=== PATIENT | male | born 1975 | race Two or more races ===

== ENCOUNTER 2025-06-08 12:33 | Outpatient (OUT) | payer OTHER, SELFPAY ==
--- OUTSIDE RECORDS SUMMARY | 2025-06-07 11:00 | XMS_ITS ---
Author Organization [facility] in [place] Address [address] [place] [address] Care Team Providers Care Md Allergy Immunology Name Role Phone Indio Bernardo Primary Care Provider Allergies Allergen (clinical drug ingredient) Drug/Non Drug Allergy documented on EMR Reaction Allergy Type Onset Date Status AloxihivesDrug AllergyActiveOmnicefhivesDrug AllergyActivedoxycyclineDoxycycline rashDrug AllergyActive REASON FOR VISIT new patient Medications Medication SIG (Take, Route, Frequency, Duration) Notes Start Date End Date Status Lantus 100 UNIT/ML 40mg Subcutaneous daily ActivemetFORMIN HCl 1000 MG1 tablet with a meal Orally twice a dayActive Jardiance 25 MG1 tablet Orally Once a dayActiveVascepa 1 GM2 capsules with meals Orally Twice a dayActiveRosuvastatin Calcium 10 MG1 tablet Orally Once a day ActiveGlimepiride 4 MG1 tablet with breakfast or the first main meal of the day Orally twice a dayActiveMetoprolol Tartrate 25 MG1 tablet with food Orally Twice a dayActiveLisinopril 10 MG1 tablet Orally Once a dayActive Social History Tobacco Use: Social History Observation Description Date Details (start date - stop date) Never Smoker NA - NA Tobacco Control (Standard) Question Answer Notes Tobacco use: Nonsmoker AUDIT-C (Standard) Question Answer Notes Did you have a drink containing alcohol in the p ast year? No Lwhpqc0HpzsrllqgqqnvyTqzcjved Problems Problem Type SNOMED Code ICD Code Onset Dates Problem Status W/U Status Risk Notes Problem Well adult (595946067) Well adult (Z00.00 ) Activeconfirmed Vital Signs Weight 183 lbs 06/07/2025 Height 68 in 06/07/2025 Blood pressure systolic 124 mm Hg 06/07/20 25 Blood pressure diastolic 74 mm Hg 025 BMI 27.82 kg/m2 06/07/2025 Encounters Encounter Location Date Provider Diagnosis [facility] [address] [place] [address] 06/07/2025 Indio Bernardo Well adult Z00.0 0 Assessments Encounter Date Diagnosis (ICD Code) Assessment Notes Treatment Notes Treatment Clinical Notes Section Notes 06/07/2025 Well adult (ICD-10 - Z00.00) Plan Of Treatment Pending Test Test Name Order Date HEMOGLOBIN A1C (GLYCO) 06/07/2025 LIPID PANEL (CHOL/TRIG/HDL/LDL) 06/07/20 25 STOOL OCCULT BLOOD 06/07/2025 THYROID PANEL (T4/TSH/FREE T3) PSA, SCREENING 06/07/2025 CMP (COMP MET NAGEL) w/eGFR CKD-EPI 2024 CBC WITH DIFF 06/07/2025 Progress Notes * Tangela GERMANOB:1975 (49 yo M)Acc No.[id number]:06/07/2025 UNLOCKED PROGRESS NOTE New Patient Patient: Saúl SANTOS :?Erasmo Bernardo ([facility]), MDDOB:1975???Age: 49 Y???Sex:MaleDate:06/07/2025Phone:[phone]:[address] [place], [place] [id number] In:03:38 PM ESTCheck Out:05:15 PM EST Subjective: * Chief Complaints: * 1 . New patient. * HPI: ???Depression Screening:?PHQ-2 (2015 Edition)?Total Score?0 ?Little interest or pleasure in doing things? Not at all ?Feeling down, depressed, or hopeless??Not at all ?DM- hgba1c last was an 8 - See Sabbaugh Hyper chol - on meds HTN - stabel here. * ROS: ???EENT:?hearing changes?denies.?visual changes?denies. non-healing mouth sores?denies.?swollen glands or neck lumps?denies.?hoarseness?denies.?sore throat?denies.?difficulty swallowing?denies.?nose bleeds?denies.?nasal congestion?denies.?ear ache?denies.?ear discharge denies.?ringing in ears?denies.?light sensitivity?denies.?eye pain?denies.?blurring?denies.?eye irritation?denies.?double vision?denies. vision loss?denies.?General/Constitutional:?Sweats:?Denies.?Fatigue?denies.?Sleep proble ms?denies.?Anorexia?denies.?Malaise?denies.?Weight loss?denies. Fatigue or Weakness?denies.?Fever or Chills?denies.?Cardiovascular:?Shortness of Breath w/lying flat?denies.?Lightheadedne ss/dizziness?denies.?Chest tightness/ heavy pressure?denies.?Swelling of legs, a nkles, or feet?denies.?Waking up with shortness of breath?denies.?Chest pain&#16 0;denies.?Palpitations?denies.?Weight gain?denies.?Respiratory:?Chronic or frequent cough?denies.?Coughing up blood&#1 60;denies.?Difficulty breathing?denies.?Productive cough?denies.?Snoring&#1 60;denies.?Shortness of breath that awakens from sleep (PND)?denies.?Chest pain? denies.?Sputum production?denies.?Wheezing?denies.?Musculoskeletal:?Joint pain?denies.?Joint Fluid?denies.?Backpain?denies.?Knee pain?denies.?Neck pain?denies.?Joint Stiffness?denies.?Muscle cramps?denies.?Weakness of muscles?denies.?Arthritis?denies.?Muscle aches?denies.?Pain in shoulder(s)?denies.?Swollen joints?denies.? * Medical History: D iabetic type 2. * Surgical History: b oth knee orthoscopy and acl replacement , right rotator cuff repair . * Family History: F ather: , prostate cancer, diagnosed with Cancer, Diabetes, Hypertension. M other: alive, diagnosed with Diabetes, Hypertension. B rother(s): alive. S ister(s): alive. 1 brother(s) . 2 son(s) , 1 daughter(s) . . * Social History: ???Tobacco Use:?Tobacco Control (Standard)?Tobacco use:?Nonsmoker ???Drug/Alcohol:?AUDIT-C (Standard)?Did you have a drink containing alcohol in the past year??No ?Points?0 ?Interpretation?Negative * Medications: T aking Glimepiride 4 MG Tablet 1 tablet with breakfast or the first main meal of the day Orally twice a day , Taking Jardiance(Empagliflozin) 25 MG Tablet 1 tablet Orally Once a day , Taking Lantus(Insulin Glargine) 100 UNIT/ML Solution 40mg Subcutaneous daily , Taking Lisinopril 10 MG Tablet 1 tablet Orally Once a day , Taking metFORMIN HCl 1000 MG Tablet 1 tablet with a meal Orally twice a day , Taking Metoprolol Tartrate 25 MG Tablet 1 tablet with food Orally Twice a day , Taking Rosuvastatin Calcium 10 MG Tablet 1 tablet Orally Once a day , Taking Vascepa(Icosapent Ethyl) 1 GM Capsule 2 capsules with meals Orally Twice a day , Medication List reviewed and reconciled with the patient * Allergies: A loxi: hives, Doxycycline: rash, Omnicef: hives. Objective: * Vitals: W t:183lbs, Ht: 68 in, BP:124/74mm Hg, BMI:27.82Index, Ht-cm: 172.72 cm, Wt-k.01 kg. * Examination: ???Physical Exam: ?GENERAL:?well developed, well nourished, in no acute distress.?HEAD:?normocephalic/atraumatic.?EYES:?pupils equal, round and reactive to light, conjunctivae and sclerae normal.?EARS:?no deformity or lesion of external ear, canals and TM appear normal bilaterally, TM's intact, not inflamed with normal light reflex, hearing grossly normal to conversational speech.?NOSE:?no deformity, discharge, inflammation, or lesions. ?MOUTH:?mucous membranes moist, normal oropharynx and posterior pharynx without lesions or exudates, tongue normal, dentition normal.?NECK:?neck supple, no masses or palpable cervical nodes, trachea midline, thyroid without nodules, masses, tenderness, or enlargement.?CHEST:?no chest wall deformity, no chest wall tenderness. ?LUNGS:?normal respiratory effort and clear to auscultation, no wheezes, rales, or rhonchi, good air exchange.?CARDIO:?regular rate and rhythm, normal S1 and S2, nor murmur, rub, or gallop.?PULSES:?normal capillary refill.?ABDOMEN:?soft, non-distended, non-tender, no masses.?MUSCULOSKELETAL:?no deformity or scoliosis noted, normal range of motion, joints normal, no erythema, edema, effusion, or ecchymosis.?EXTREMITY:?no clubbing, cyanosis, edema, or deformity withnormal ROM in both upper and lower bilateral extremities.?NEUROLOGIC:?grossly normal.?SKIN:?no rashes, ulcerations, or suspicious lesions.?LYMPH NODES:?no cervical adenopathy, nodes normal.?MENTAL STATUS:?alert and oriented x3, normal mood and affect.? Assessment: * Assessment: 1.?Well adult - Z00.00 (Primary)??? Plan: * Treatment: ?LAB: HEMOGLOBIN A1C (GLYCO) ?LAB: LIPID PANEL (CHOL/TRIG/HDL/LDL) ?LAB: STOOL OCCULT BLOOD ?LAB: THYROID PANEL (T4/TSH/FREE T3) ?LAB: PSA, SCREENING ?LAB: CMP (COMP MET NAGEL) w/eGFR CKD-EPI ?LAB: CBC WITH DIFF * Preventive Medicine: ??Screenings/Counseling:?BMI ACTION PLAN?Above Normal BMI Follow-up?Dietary management education, guidance, and counseling * * Electronic signature of Indio Bernardo MD, [id number] on 06/08/2025 at 12:42 PM EST Sign off status: PendingVisit Status:?CHK (Check Out) * Provider: Micaela Bernardo ([facility])MD Date: 1 08/08/2024 Generated for Printing/FaSpruce Mediag/eTransmitting on:?06/08/2025 12:42 PM EST History and Physical Notes * HPI (History of Present Illness) CategorySub-CategoryDetailNotesCategory NotesDepression ScreeningPHQ-2 (2015 Edition)Total Score: 0 DM- hgba1c last was an 8 - See Sabbaugh Hyper chol - on meds HTN - stabel here Little interest or pleasure in doing things?: Not at allFeeling down, depressed, or hopeless?: Not at all Examination CategorySub-CategoryDetailNotesCategory NotesPhysical ExamGENERAL:well developed, well nourished, in no acute distressHEAD:normocephalic/atraumatic EYES:pupils equal, round and reactive to light, conjunctivae and sclerae normal EARS:no deformity or lesion of external ear, canals and TM appear normal bilaterally, TM's intact, not inflamed with normal light reflex, hearing grossly normal to conversational speechNOSE:no deformity, discharge, inflammation, or lesionsMOUTH:mucous membranes moist, normal oropharynx and posterior pharynx without lesions or exudates, tonguenormal, dentition normalNECK:neck supple, no masses or palpable cervical nodes, trachea midline, thyroid without nodules, masses, tenderness, or enlargementCHEST:no chest wall deformity, no chest wall tendernessLUNGS:normal respiratory effort and clear to auscultation, no wheezes, rales, or rhonchi, good air exchangeCARDIO:regular rate and rhythm, normal S1 and S2, nor murmur, rub, or gallopPULSES:normal capillary refillABDOMEN:soft, non-distended, non-tender, no massesRECTAL:MUSCULOSKELETAL:no deformity or scoliosis noted, normal range of motion, joints normal, no erythema, edema, effusion, or ecchymosisEXTREMITY:no clubbing, cyanosis, edema, or deformity with normal ROM in both upper and lower bilateral extremitiesNEUROLOGIC:grossly normalSKIN:no rashes, ulcerations, or suspicious lesionsLYMPH NODES:no cervical adenopathy, nodes normalMENTAL STATUS:alert and oriented x3, normal mood and affect
--- OUTSIDE RECORDS SUMMARY | 2025-06-08 12:42 | XMS_ITS | Encounter Summary ---
Author Organization [facility] Address [address] [place] [address] Care Team Providers Care Air And Missile Defense Crewmember Name Role Phone Ashwin Vasquez MD Primary Care Provider + [phone] Reason for Visit * ReasonCommentsMed Refill Encounter Details DateTypeDepartmentCare Team (Latest Contact Info)Egvmykszwoj57/03/2025Refill [facility] [address] [place] [address] Tyler Vazquez MD [address] [place] [address] Type 2 diabetes mellitus with hyperglycemia, with long-term current use of insulin (HCC) Social History Tobacco UseTypesPacks/DayYears UsedDateSmoking Tobacco: NeverSmokeless Tobacco: NeverAlcohol UseStandard Drinks/WeekCommentsNot Currently0 (1 standard drink = 0.6 oz pure alcohol)Sex and Gender InformationValueDate RecordedSex Assigned at BirthNot on fileLegal IunRtys6001/25/2023 9:32 AM EDTGender IdentityNot on file Sexual OrientationNot on filedocumented as of this encounter Plan of Treatment DateTypeDepartmentCare Team (Latest Contact Info)Petvzppfxrl19/14/2026 1:30 PM ESTOffice Visit [facility] [address] [place] [address] Tyler Vazquez MD [address] [place] [address] documented as of this encounter Visit Diagnoses Diagnosis Type 2 diabetes mellitus with hyperglycemia, with long-term current use of insulin (HCC) documented in this encounter Care Teams Team MemberRelationshipSpecialtyStart DateEnd Date Ashwin Vasquez MD [address] [place] [address] PCP - GeneralFamily Medicine02/06/23documented as of this encounter
--- OUTSIDE RECORDS SUMMARY | 2025-06-08 12:42 | XMS_ITS | Patient Health Record ---
Author Organization [facility] in [place] Address [address] [place] [address] Care Team Providers Care Fuel Cell Engineer Name Role Phone Indio Bernardo Primary Care Provider Allergies Allergen (clinical drug ingredient) Drug/Non Drug Allergy documented on EMR Reaction Allergy Type Onset Date Status AloxihivesDrug AllergyActiveOmnicefhivesDrug AllergyActivedoxycyclineDoxycycline rashDrug AllergyActive Reason For Referral No Information Medications Medication SIG (Take, Route, Frequency, Duration) Notes Start Date End Date Status Lantus 100 UNIT/ML 40mg Subcutaneous daily ActiveGlimepiride 4 MG1 tablet with breakfast or the first main meal of the day Orally twice a dayActiveMetoprolol Tartrate 25 MG1 tablet with food Orally Twice a dayActivemetFORMIN HCl 1000 MG1 tablet with a meal Orally twice a dayActive Jardiance 25 MG1 tablet Orally Once a dayActiveVascepa 1 GM2 capsules with meals Orally Twice a dayActiveLisinopril 10 MG1 tablet Orally Once a dayActive Rosuvastatin Calcium 10 MG1 tablet Orally Once a dayActive Social History Tobacco Use: Social History Observation Description Date Details (start date - stop date) Never Smoker NA - NA Tobacco Control (Standard) Question Answer Notes Tobacco use: Nonsmoker AUDIT-C (Standard) Question Answer Notes Did you have a drink containing alcohol in the p ast year? No Ojvrmr0NircpwiycowcpwZueoqslf Problems Problem Type SNOMED Code ICD Code Onset Dates Problem Status W/U Status Risk Notes Problem Well adult (828323298) Well adult (Z00.00 ) Activeconfirmed Vital Signs Blood pressure diastolic 74 mm Hg 06/07/2025 Dlmolc36 in06/07/2025lood pressure foqbeoxg933 mm Hg06/07/20250344Mswmtr283 lbs 06/07/2025BMI27.82 kg/m206/07/2025 Encounters Encounter Location Date Provider Diagnosis [facility] [address] [place] [address] 06/07/2025 Indio Bernardo Well adult Z00.0 0 [...] w/eGFR CKD-EPI 2024 CBC WITH DIFF 06/07/2025 Insurance Providers Payer Name Payer Address Payer Phone Subscriber Number Group Number Insured Name Patient Relationship to Insured Coverage Start Date Coverage End Date MMO [address] [facility], [place] [id number] Bobo Powellelf - patient is the insured Medical (General) History Medical History History ICD Code diabetic type 2 Surgical History Surgery Date(Month/Year) right rotator cuff repair both knee orthoscopy and acl replacement
--- OUTSIDE RECORDS SUMMARY | 2025-06-08 12:42 | XMS_ITS | Clinical Summary ---
Author Organization [employer] [facility] Address [id number] [place] [address] Care Team Providers Care Disintegrator Operator Name Role Phone Jeffrey Jaramillo MD Primary Care Provider [phone] Allergies Active AllergyReactionsCriticalityNoted DateCommentsMoxifloxacinRashLow 04/01/20173671AuzcujcwEzmioxon66/09/9888NcgqjxlkxrxcaFojjNjik30/16/2023 Other Reaction(s): Rash, Rash, Rash Doxycycline AwklczqXlxqqibb75/09/2017Atorvastatinmuscle qujkyb74 Simvastatinmuscle Medications MedicationSigDispense QuantityRefillsLast FilledStart DateEnd DateStatus fexofenadine (MIKAL) 180 mg tablet Take 1 tablet (180 mg total) by mouth in the morning.Active JARDIANCE 25 mg tablet tablet Take 1 tablet (25 mg total) by mouth in the morning.12/18/2019Active ergocalciferol (DRISDOL) 1,250 mcg (50,000 unit) capsule Take 1 capsule (50,000 Units total) by mouth once a week. Took on saturday07/12/2020ctive icosapent ethyL (VASCEPA) 1 gram capsule Take 2 capsules (2 g total) by mouth 2 (two) times a day with meals. 60 capsule ctive metFORMIN (GLUCOPHAGE) 1000 mg tablet TAKE 1 TABLET TWICE A DAY 180 tablet ctive metoprolol tartrate (LOPRESSOR) 25 mg tablet TAKE 1 TABLET TWICE A DAY 180 tablet ctive glimepiride (AMARYL) 4 mg tablet TAKE 1 TABLET TWICE A DAY 180 tablet ctive FREESTYLE AKUA 2 READER misc See Admin Instructions.11/13/2022ctive FREESTYLE AKUA 2 SENSOR kit 11/16/2022ctive LANTUS SOLOSTAR U-100 INSULIN 100 unit/mL (3 mL) insulin pen Inject 40 Units under the skin nightly.01/02/2023ctive BD ULTRA-FINE RUTH PEN NEEDLE 32 gauge x 5/32 needle 10/30/2022ctive NON FORMULARY LANTANOPROST EYE DROPS, 1 DROP EACH EYE ONCE A DAYActive lisinopriL (PRINIVIL,ZESTRIL) 10 mg tablet TAKE 1 TABLET IN THE MORNING 90 tablet tive rosuvastatin (CRESTOR) 10 mg tablet TAKE 1 TABLET IN THE MORNING 90 tablet tive albuterol (PROVENTIL HFA;VENTOLIN HFA) 90 mcg/actuation inhaler Indications:BronchitisInhale 2 puffs every 6 (six) hours as needed for wheezing. 18 g 1105Active carbamide peroxide (DEBROX) 6.5 % otic solution Indications:Impacted cerumen of both earsAdminister 5 drops into both ears in the morning and 5 drops before bedtime. 15 mL 5Active Active Problems ProblemNoted DateDiagnosed DateProliferative diabetic /01/2020 Abnormal nuclear stress test06/04/2019Type 2 diabetes mellitus without sicelrbiereq99/09/2017Essential hypertension, gogkjy8804/01/2017Hyperlipidemia 04/01/2017GERD (gastroesophageal reflux disease)04/01/2017Chest painDiabetes mellitusHypertensionHypercholesterolemiaPalpitations Encounters DateTypeDepartmentCare SmfmVkrrnughcud04/02/2025Orders Only [facility] [address] [place] [address] External, Scanning Provider 03/10/2025 4:15 PM EDTOffice Visit [facility] [address] [place] [address] Jeffrey Jaramillo MD Bronchitis (Primary Dx); Impacted cerumen of both ears03/10/2025Travelfrom Last 3 Months Immunizations ImmunizationAdministration DatesNext DueCOVID-19, mRNA, LNP-S, PF, 30mcg/0.3mL Dose09/27/2020,09/06/2020 Family History Medical HistoryRelationNameCommentsDiabetesBrotherHyperlipidemiaBrother HypertensionBrotherCancerFatherPROSTATEDiabetesFatherHeart diseaseFather HyperlipidemiaFatherHypertensionFatherProstate cancerFatherDiabetesMaternal GrandmotherDiabetesMotherHyperlipidemiaMotherHypertensionMotherRelationName StatusCommentsBrotherFatherMaternal GrandmotherMother Social History Tobacco UseTypesPacks/DayYears UsedDateSmoking Tobacco: NeverSmokeless Tobacco: Never Tobacco Cessation:Counseling Given: Not Answered Alcohol UseStandard Drinks/WeekCommentsNot Currently0 (1 standard drink = 0.6 oz pure alcohol)AUDIT-CAnswerDate RecordedFrequency of Alcohol ConsumptionMonthly or less07/17/2018Average Number of Drinks1 or Frequency of Binge CnbjinojXbmoa82/24/2019Overall Financial Resource Strain (CARDIA)AnswerDate RecordedHow hard is it for you to pay for the very basics like food, housing, medical care, and heating?Not hard at all02/09/2025PHQ-2AnswerDate RecordedTotal Nnuro054PRAPARE - TransportationAnswerDate RecordedIn the past 12 months, has lack of transportation kept you from medical appointments or from getting medications?No02/09/2025In the past 12 months, has lack of transportation kept you from meetings, work, or from getting things needed for daily living?No02/09/2025Housing InstabilityAnswerDate RecordedAre you worried or concerned that in the next two months you may not have stable housing that you own, rent or stay in as a part of a household?No02/09/2025hildcareAnswer Date QuoeogeyBvspqgesrFtdtomh34/06/2019EmploymentAnswerDate RecordedEmployment Nkgsozb8211/27/2018Hunger ScreeningAnswerDate RecordedWithin the past 12 months we worried whether our food would run out before we got money to buy more.Never True03/10/2025Within the past 12 months the food we bought just didn't last and we didn't have money to get more.Never True03/10/2025Purpose - LifeAnswerDate RecordedPurpose and direction in uusmKwfehok28/20/2021ex and Gender Information ValueDate RecordedSex Assigned at BirthNot on fileLegal AndVpyw1801/27/2015 11:49 AM EDTGender IdentityNot on fileSexual OrientationNot on file Last Filed Vital Signs Vital SignReadingTime TakenCommentsBlood Ivaijkhx772/7009 3:53 PM EDT Znqpz990303/10/2025 3:53 PM VRGElusvibldcz10.2 ??C (97.2 ??F)03/10/2025 3:53 PM EDTRespiratory Csta297903/10/2025 3:53 PM EDTOxygen Zhwfgcpnvy01%03/10/2025 3:53 PM EDTInhaled Oxygen Concentration--Kgthsz62 kg (183 lb)03/10/2025 3:53 PM EDT Mosurw062.9 cm (6')02/11/2024 4:07 PM EDTBody Mass Index24.8202/11/2024 4:07 PM EDT Plan of Treatment DateTypeDepartmentCare Team (Latest Contact Info)Hwbuatsesrs21/03/2026 3:30 PM ESTOffice Visit [facility] [address] [place] [address] Jeffrey Jaramillo MD [address] [place] [address] Health MaintenanceDue DateLast DoneCommentsDTaP,Tdap and Td Vaccines (1 - Tdap) 1995COVID-19 Vaccine (5 - 2024- season)5106/24/2021, 06/15/2021, 09/27/2020, Additional history existsInfluenza Dykkofb5302/22/2025Diabetic Foot Exam, 08/20/2024, 01/23/2022, Additional history exists Tobacco Ahjigwjzv95/19/819823/dult BMI Uixcyjszh83/ Depression Pokrezllo97/Diabetic Ophthalmology Exam03/25/2026 03/25/2025, 07/12/2023, 08/27/2022, Additional history exists Medical Devices ImplantedTypeAreaManufacturerDevice IdentifierShelf Expiration DateModel / Serial / LotImplant Bio Tiss Med Bvn At Dlv Dev Bioinductive Impl - Sn/A - [id number] Implanted:Qty: 1 on 06/12/2023 [facility] ShoulderSmith & [id number] / N/A / [id number] Sut Bn Ascp Dlv - Sn/A - [id number] Implanted:Qty: 1 on 06/12/2023 [facility]: ShoulderSmith & Qbsdqh05/[id number] / N/A / [id number] Sut Regeneten Tndn Rotr Cuf Repr - Sn/A - [id number] Implanted:Qty: 1 on 06/12/2023 by Clarence Martinez DO at [facility] ImplantRight: ShoulderSmith & [id number] / N/A / [id number] Procedures Procedure NamePriorityDate/TimeAssociated DiagnosisComments DIABETES EYE EXAM Uxauitw5103/25/2025from Last 3 Months Results * DIABETES EYE EXAM (03/25/2025)Specimen (Source)Anatomical Location / LateralityCollection Method / VolumeCollection TimeReceived Time03/25/2025 Narrative Authorizing ProviderResult TypeResult StatusScanning Provider ExternalHEALTH MAINTENANCEFinal ResultPerforming OrganizationAddressCity/State/ZIP CodePhone Number MANUALLY TRANSCRIBED RESULTS from Last 3 Months Insurance MemberSubscriberPlan / Payer (Effective 2015-Present)Name:Saúl Powell Relation to Subscriber:SelfName:Saúl Powell Payer ID:Not on file Type:Not on file Address: [place] [phone] Care Teams Team MemberRelationshipSpecialtyStart DateEnd Date Jeffrey Jaramillo MD [address] [place], [place] [id number] PCP - GeneralInternal Medicine02/09/25
--- OUTSIDE RECORDS SUMMARY | 2025-06-08 12:42 | XMS_ITS | Clinical Summary ---
Author Organization [facility] Address [address] [place] [address] Care Team Providers Care Truck Rental Clerk Name Role Phone Ashwin Vasquez MD Primary Care Provider + [phone] Allergies Active AllergyReactionsCriticalityNoted VjokHaoiukwgObbpppvotgnb03/09/2017 Fhifqewk25/09/3824CvnuzvuzmlknfTzuhOmgm97/16/2023 Other Reaction(s): Rash, Rash, Rash UkqioxbyokoEjljFhzu80/20/2023 Other Reaction(s): Rash KmokcrxxsvjUsiyikoVzbx59/13/2037Lqitqndmcxup79/20/2023 Other Reaction(s): Hives / Skin Rash UqvdgeqpmbmsTvrotdrTowp56/13/2820HevgymxmzqxMbuzvpzTcrj54/13/2024 Medications MedicationSigDispense QuantityRefillsLast FilledStart DateEnd DateStatus Continuous Blood Gluc Rn Clinical Quality (FreeStyle Kelsy 2 [place]) device USE NUAMTXMX85/23/2023ctive fexofenadine (Melissa) 180 MG tablet Take 180 mg by mouth in the morning.Active Icosapent Ethyl (Vascepa) 1 g capsule 11/15/2022ctive latanoprost (Xalatan) 0.005 % ophthalmic solution Administer 1 drop into affected eye(s) in the morning.Active lisinopril 10 MG tablet Take 1 tablet by mouth in the morning.12/25/2022ctive rosuvastatin (Crestor) 10 MG tablet Take 10 mg by mouth in the morning.09/10/2022ctive Continuous Glucose Sensor (FreeStyle Kelsy 2 Sensor) [facility] Indications:Type 2 diabetes mellitus without complication, with long-term current use of insulin (HCC)CHANGE SENSOR AFTER NO MORE THAN 14 DAYS 6 each 4Active glimepiride (Amaryl) 4 MG tablet Indications:Type 2 diabetes mellitus with hyperglycemia, with long-term current use of insulin (HCC)TAKE 1 TABLET TWICE A DAY 180 tablet 5Active metFORMIN (Glucophage) 1000 MG tablet Indications:Type 2 diabetes mellitus with hyperglycemia, with long-term current use of insulin ([facility])TAKE 1 TABLET TWICE A DAY WITH MEALS 180 tablet 5Active Jardiance 25 MG Indications:Type 2 diabetes mellitus with hyperglycemia, with long-term current use of insulin ([facility])TAKE 1 TABLET DAILY 90 tablet 5Active ergocalciferol (Vitamin D2) 1.25 MG ([address] [place]) capsule Indications:Vitamin D deficiencyTAKE 1 CAPSULE WEEKLY 13 capsule 5Active Continuous Glucose Sensor (FreeStyle Kelsy 2 Plus Sensor) misc Indications:Type 2 diabetes mellitus with hyperglycemia, with long-term current use of insulin ([facility])Inject 1 kit under the skin Every 15 Days 6 each 5Active insulin pen needle (Embecta Pen Needle Mayela 2 Gen) 32G x 4 mm misc Indications:Type 2 diabetes mellitus without complication, with long-term current use of insulin ([facility])USE ONCE DAILY 100 each 5Active insulin glargine (Lantus SoloStar) 100 UNIT/ML pen Indications:Type 2 diabetes mellitus with hyperglycemia, with long-term current use of insulin ([facility])INJECT 38 UNITS UNDER THE SKIN IN THE MORNING 30 mL 5Active BD Pen Needle Mayela 2nd Gen 32G X 4 MM misc Indications:Type 2 diabetes mellitus without complication, with long-term current use of insulin ([facility])USE ONCE DAILY 90 each 311411/Discontinued(Reorder) insulin glargine (Lantus SoloStar) 100 UNIT/ML pen Indications:Type 2 diabetes mellitus with hyperglycemia, with long-term current use of insulin ([facility])Inject 38 Units under the skin in the morning. 45 mL 104//355095/08/2024Discontinued insulin pen needle (BD Pen Needle Mayela 2nd Gen) 32G x 4 mm misc Indications:Type 2 diabetes mellitus without complication, with long-term current use of insulin (HCC)USE ONCE A DAY WITH INSULIN PENS. 100 each /5107/25/2024Discontinued Active Problems ProblemNoted DateDiagnosed DateStatus post right rotator cuff rmytps4407/31/2023 Shoulder impingement, right07/31/2023hest pain04/12/2023Hypercholesterolemia 04/12/20239904Jzmpvhpmgvqv72/20/2023Age-related cataract of both eyes04/27/2022 Proliferative diabetic /01/2020Abnormal nuclear stress test 06/04/2019Essential hypertension, immwsy7904/01/2017GERD (gastroesophageal reflux disease)04/01/20175107Aqiaruhxxqnmhq84/09/2017Type 2 diabetes mellitus without aizknjxsmzsjc82/09/2017 Encounters DateTypeDepartmentCare DtuyNirvurncoeg34/03/2025Refill [facility] [address] [place] [address] Tyler Vazquez MD Type 2 diabetes mellitus with hyperglycemia, with long-term current use of insulin (HCC)05/23/2025Refill [facility] [address] [place] [address] Tyler Vazquez MD Type 2 diabetes mellitus without complication, with long-term current use of insulin ([facility])05/13/2025Telephone [facility] [address] [place] [address] Tyler Vazquez MD Med Refillfrom Last 3 Months Family History Medical HistoryRelationNameCommentsDiabetesBrotherx 1DiabetesFatherJoseph BarrettHypertensionFatherJoseph BarrettKidney diseaseFatherJoseph Powell Prostate cancerFatherJoseph BarrettTachycardiaFatherJoseph BarrettDiabetesMother Chatlene BarrettHypertensionMotherChatlene BarrettRelationNameStatusComments Brotherx 1AliveDaughterx 1AliveFatherJoseph BarrettAliveMotherChatlene Powell AliveSonx 2Alive Social History Tobacco UseTypesPacks/DayYears UsedDateSmoking Tobacco: NeverSmokeless Tobacco: Never Tobacco Cessation:Counseling Given: Not Answered Alcohol UseStandard Drinks/WeekCommentsNot Currently0 (1 standard drink = 0.6 oz pure alcohol)Sex and Gender InformationValueDate RecordedSex Assigned at Not on fileLegal ZisQged6501/25/2023 9:32 AM EDTGender IdentityNot on fileSexual OrientationNot on file Last Filed Vital Signs Vital SignReadingTime TakenCommentsBlood Nxjeceue507/76001/06/2025 2:12 PM EDT Maxaj783301/06/2025 2:12 PM EDTTemperature--Respiratory Cgob291001/06/2025 2:12 PM EDTOxygen Xfvexqtfqy49%01/06/2025 2:12 PM EDTInhaled Oxygen Concentration-- Erzsbg40.6 kg (191 lb)01/06/2025 2:12 PM OGCQkmmhy761.7 cm (5' 8 )01/06/2025 2:12 PM EDTBody Mass Index29.04001/06/2025 2:12 PM EDT Plan of Treatment DateTypeDepartmentCare Team (Latest Contact Info)Ylxibvroxck48/14/2026 1:30 PM ESTOffice Visit [facility] [address] [place] [id number] Tyler Vazquez MD [address] [place] [address] Health MaintenanceDue DateLast DoneCommentsCT Twazboroglgi87/20/1977Colonoscopy 1976Colorectal Cancer Tqpompyaz16/20/1977FIT-DNA1976FIT1976 FOBT1976 5368Saeaakgclxxvl02/20/1977COVID-19 Vaccine ( season) 5106/24/2021, 06/15/2021, 09/27/2020, Additional history existsInfluenza Vaccine (#1)02/22/2025Pneumococcal Vaccine: Pediatrics (0 to 5 Years) and At- Risk Patients (6 to 64 Years)Aged OutNo longer eligible based on patient's age to complete this topic Insurance * Guarantor: Alyssa Powell TypeRelation to PatientDate of BirthPhone Billing AddressPersonal/EszwkrHort49/[birth year]/[address] [address] Care Teams Team MemberRelationshipSpecialtyStart DateEnd Date Ashwin Vasquez MD [address] [place] [address] PCP - GeneralFamily Medicine02/06/23
[2025-06-08 13:02] LABS: Hematocrit 50.6 % (42.0-54.0); Hemoglobin 17.0 g/dL (14.0-18.0); Immature Granulocytes Abs Auto 0.02 10^3/uL (0.00-0.03); Immature Granulocytes Pct Auto 0.3 % (0.0-0.5); Lymphocytes Absolute Auto 2.9 10^3/uL (1.2-3.8); Mean Corpuscular HGB Conc 33.6 g/dL (29.9-35.2); Mean Corpuscular Hemoglobin 29.3 pg (25.9-34.0); Mean Corpuscular Volume 87.1 fL (80.0-94.0); Platelet Count 210 10^3/uL (150-450); Red Blood Count 5.81 10^6/uL (4.70-6.10); White Blood Count 7.5 10^3/uL (4.0-11.0)
[2025-06-08 13:41] LABS: Alanine Aminotransferase 35 U/L (16-63); Albumin Globulin Ratio 1.1; Albumin Level 4.1 g/dL (3.4-5.0); Alkaline Phosphatase 41 U/L (46-116); Anion Gap 19.1; Aspartate Amino Transferase 14 U/L (15-37); Blood Urea Nitrogen 20.0 mg/dL (7.0-18.0); Calcium 9.0 mg/dL (8.5-10.1); Carbon Dioxide 23.5 mmol/L (21.0-32.0); Chloride 103 mmol/L (98-107); Cholesterol 201 mg/dL (<=200); Estimated GFR (African America >60 (>=60 mL/min/1.73m^2); Estimated GFR (Non-African Ame >60 (>=60 mL/min/1.73m^2); Free T3 2.99 pg/mL (2.18-3.98); Globulin 3.7 g/dL; Glucose 174 mg/dL (74-106); HDL Cholesterol 29 mg/dL (40-60); Potassium 4.6 mmol/L (3.5-5.1); Sodium 141 mmol/L (136-145); Thyroid Stimulating Hormone 1.139 uIU/mL (0.358-3.740); Total Protein 7.8 g/dL (6.4-8.2); Triglycerides 568 mg/dL (<=150); VLDL CHOLESTEROL 113.6 mg/dL
== END 2025-06-08 12:34 | disposition home or self-care (01) ==
PROVIDERS: PCP Family Medicine; Visit Provider Family Medicine
DX: Z00.00 Encounter for general adult medical examination without abnormal findings (principal); Z12.5 Encounter for screening for malignant neoplasm of prostate
CPT/HCPCS: 36415; 80053; 80061; 83036; 83721; 84436; 84443; 84481; 85025; G0103